=== PATIENT | male | born 2000 | race Caucasian/White ===

== ENCOUNTER → 2018-04-25 | Outpatient (CLI) | payer OTHER ==
[~2018-04-25] MED LIST: AMOX-559 PO; MINO100C27 PO; ONDA4TAB PO
[2018-04-26 10:27] LABS: PLATELET COUNT, AUTOMATED 302 K/uL (150-450)
[2018-04-26 10:51] LABS: LDL CHOLESTEROL 87 mg/dl
== END ==
LOC: LAB 13:12
PROVIDERS: ATTEND Nurse Practitioner
DX: L70.9 Acne, unspecified (principal); Z79.899 Other long term (current) drug therapy
CPT/HCPCS: 36415; 82040; 82247; 82310; 82374; 82435; 82465; 82565; 82947; 83718; 84075; 84132; 84155; 84295; 84450; 84460; 84478; 84520; 85025

== ENCOUNTER → 2018-04-26 | Outpatient (CLI) | payer OTHER | LOC: LAB 09:49 | PROVIDERS: ATTEND Nurse Practitioner | DX: Z02.9 Encounter for administrative examinations, unspecified (principal) ==

== ENCOUNTER → 2018-05-22 | Outpatient (CLI) | payer OTHER ==
[~2018-05-22] MED LIST changes: +ISOT40CA13 PO
[2018-05-22 07:42] LABS: PLATELET COUNT, AUTOMATED 285 K/uL (150-450)
[2018-05-22 09:15] LABS: LDL CHOLESTEROL 107 mg/dl
== END ==
LOC: LAB 07:29
PROVIDERS: ATTEND Nurse Practitioner
DX: L70.9 Acne, unspecified (principal); Z79.899 Other long term (current) drug therapy
CPT/HCPCS: 36415; 82040; 82247; 82310; 82374; 82435; 82465; 82565; 82947; 83718; 84075; 84132; 84155; 84295; 84450; 84460; 84478; 84520; 85025

== ENCOUNTER → 2018-06-21 | Outpatient (CLI) | payer OTHER ==
[2018-06-21 10:25] LABS: PLATELET COUNT, AUTOMATED 271 K/uL (150-450)
[2018-06-21 10:42] LABS: LDL CHOLESTEROL 93 mg/dl
== END ==
LOC: LAB 10:13
PROVIDERS: ATTEND Nurse Practitioner
DX: L70.9 Acne, unspecified (principal); Z79.899 Other long term (current) drug therapy
CPT/HCPCS: 82040; 82247; 82310; 82374; 82435; 82465; 82565; 82947; 83718; 84075; 84132; 84155; 84295; 84450; 84460; 84478; 84520; 85025